=== PATIENT | female | born 1970 | race Two or more races ===

== ENCOUNTER 2019-10-27 01:30 | Inpatient (IN) | payer MEDICAID ==
[~2019-10-27] VITALS: Ht 154.9 cm; Wt 88.8 kg
[~2019-10-27 01:30] MED LIST: FERR325T18 PO; INSU100V8 SQ; SIMV20TA19 PO; Will bring list DOS
[2019-10-27] MEDS ORDERED: NALOXONE 0.4 MG/ML, 1ML ONE (01:39)
[2019-10-27] MEDS ORDERED: PLEASE ENTER ALLERGIES MC SCH (02:00)
[2019-10-27] MEDS ORDERED: SODIUM CHLORIDE FLUSH 10ML SYR IVF ONE (02:00)
[2019-10-27] MEDS ORDERED: NALOXONE 0.4 MG/ML, 1ML IVPush ONE (02:00)
--- NOTE | 2019-10-27 02:00 | NUR ---
BIB WITH C/O CP SINCE 7 PM, DENIES CP AT THIS TIME [facility] GAVE PT FENT 100 AND PT DESATING AT THIS TIME NARCAN GIVEN
[2019-10-27 02:10] LABS: BASOPHILS # (AUTO) 0.05 x10^3/uL (0-0.1); BASOPHILS % (AUTO) 1 % (0-1); EOSINOPHILS # (AUTO) 0.29 x10^3/uL (0-0.4); EOSINOPHILS % (AUTO) 4 % (1-7); LYMPHOCYTES # (AUTO) 1.18 x10^3/uL (1-3.4); LYMPHOCYTES % (AUTO) 16 % (22-44); MD NO; MEAN CORPUSCULAR HEMOGLOBIN 33.8 pg (27.0-34.8); MEAN CORPUSCULAR HGB CONC 32.3 g/dL (32.4-35.8); MEAN CORPUSCULAR VOLUME 104.6 fL (80-100); MEAN PLATELET VOLUME 8.5 fL (7.4-10.4); MONOCYTES # (AUTO) 0.47 x10^3/uL (0.2-0.8); MONOCYTES % (AUTO) 6 % (2-9); NEUTROPHILS # (AUTO) 5.59 x10^3/uL (1.8-6.8); NEUTROPHILS % (AUTO) 74 % (42-75); PLATELET COUNT 280 x10^3/uL (130-400); RED BLOOD COUNT 3.21 x10^6/uL (3.82-5.3); RED CELL DISTRIBUTION WIDTH 17.6 % (9.6-15.2)
[2019-10-27 02:22] LABS: ALANINE AMINOTRANSFERASE 15 U/L (12-78); ALBUMIN 3.3 g/dL (3.4-5.0); ANION GAP 8 mmol/L (5-15); CALCIUM 9.2 mg/dL (8.5-10.1); CHLORIDE 104 mmol/L (98-107); CREATININE 7.03 mg/dL (0.55-1.02)
[2019-10-27 02:27] LABS: ALKALINE PHOSPHATASE 95 U/L (45-117); BILIRUBIN,TOTAL 0.3 mg/dL (0.2-1.0); T4 (THYROXINE) 8.2 mcg/dL (4.8-13.9); TROPONIN I 0.045 ng/mL (0.000-0.045)
[2019-10-27] MEDS ORDERED: CALCIUM CHLORIDE 10%, 10ML SYR ONE (03:30)
[2019-10-27] MEDS ORDERED: ALBUTEROL 0.5%, 20ML NPPB ONE (03:30)
[2019-10-27] MEDS ORDERED: DEXTROSE 50%, 50ML SYRINGE IVPush ONE (03:30)
[2019-10-27] MEDS ORDERED: SODIUM BICARB 8.4%, 50ML SYRINGE IVPush ONE (03:30)
[2019-10-27] MEDS ORDERED: INSULIN REGULAR 100 UNITS/ML, 3ML VIAL IVPush ONE ×2 (03:30→11:00)
[2019-10-27] MEDS ORDERED: CALCIUM CHLORIDE 10%, 10ML SYR IVPush ONE (03:30)
[2019-10-27] MEDS ORDERED: SODIUM BICARBONATE 1 MEQ/ML, 50ML VIAL ONE (03:30)
[2019-10-27] MEDS ORDERED: DEXTROSE 50%, 50ML SYRINGE ONE (03:31)
[2019-10-27] MEDS ORDERED: INSULIN LISPRO SINGLE DOSE, ER SQ-INSULIN ONE (03:32)
--- NOTE | 2019-10-27 03:58 | NUR ---
PT MEDICATED PER EMAR. 5 RIGHTS ADDRESSED. SECOND EKG DONE DUE TO PT NOW C/O CHEST PAIN. PT INTERMITTENTLY SLEEPING WHILE THIS RN ADMINISTERING MEDS.
--- NOTE | 2019-10-27 04:06 | NUR ---
REPORT TO LIZZETH MELENDEZ
[2019-10-27 04:51] VITALS: BP 169/75
[2019-10-27] MEDS ORDERED: BISACODYL 10 MG SUPP PR PRN (05:00)
[2019-10-27] MEDS ORDERED: hydrALAzine 20 MG/ML, 1ML IVPush PRN (05:00)
[2019-10-27] MEDS ORDERED: POLYETHYLENE GLYCOL 17 GM PACKET PO PRN (05:00)
[2019-10-27] MEDS: HEPARIN 5,000 UNITS/ML, 1ML SQ SCH ×3 (05:49→21:00)
[2019-10-27] MEDS: INSULIN LISPRO 100 UNITS/ML, PEN SQ-INSULIN SCH ×4 (07:00→21:00)
[2019-10-27 08:02] VITALS: BP 173/81
[2019-10-27 08:02] LABS: HCT (SEDRATE) 32.7 % (34.6-47.8)
[2019-10-27 08:12] LABS: TROPONIN I 0.077 ng/mL (0.000-0.045)
[2019-10-27 09:52] LABS: ANION GAP 10 mmol/L (5-15); CALCIUM 9.3 mg/dL (8.5-10.1); CHLORIDE 107 mmol/L (98-107); CREATININE 7.33 mg/dL (0.55-1.02)
[2019-10-27 09:56] LABS: TROPONIN I 0.088 ng/mL (0.000-0.045)
[2019-10-27] MEDS ORDERED: SODIUM POLYSTYRENE SULFONATE ORAL SUSP PO ONE (11:00)
[2019-10-27] MEDS ORDERED: DEXTROSE 50%, 50ML VIAL IVPush ONE (11:00)
[2019-10-27 11:24] LABS: INTERNATIONAL NORMALIZED RATIO 0.94 (0.93-1.1)
[2019-10-27] MEDS: MULTIVITAMIN 1 TABLET PO SCH (11:30)
[2019-10-27 12:40] VITALS: BP 139/75
[2019-10-27] MEDS ORDERED: AMLO-150 PO (12:59)
[2019-10-27] MEDS ORDERED: LINA5TAB PO (12:59)
[2019-10-27] MEDS ORDERED: ASPI81TA45 PO (12:59)
[2019-10-27] MEDS ORDERED: SEVE800T8 PO (12:59)
[2019-10-27] MEDS ORDERED: ATOR-2 PO (12:59)
[2019-10-27] MEDS ORDERED: SENN1TAB68 PO (12:59)
[2019-10-27] MEDS ORDERED: ISOS60TA36 PO (12:59)
[2019-10-27] MEDS ORDERED: CLOP75TA PO (12:59)
[2019-10-27] MEDS ORDERED: TRAZ50TA66 PO (12:59)
[2019-10-27] MEDS ORDERED: GABA300C10 PO (12:59)
[2019-10-27 15:40] LABS: ANION GAP 11 mmol/L (5-15); CALCIUM 9.1 mg/dL (8.5-10.1); CHLORIDE 106 mmol/L (98-107); CREATININE 7.62 mg/dL (0.55-1.02)
[2019-10-27 20:50] VITALS: BP 136/59
[2019-10-27] MEDS: ATORVASTATIN 80 MG TABLET PO SCH (21:00)
[2019-10-28 03:41] VITALS: BP 132/77
[2019-10-28 06:02] LABS: ANION GAP 8 mmol/L (5-15); CALCIUM 8.9 mg/dL (8.5-10.1); CHLORIDE 101 mmol/L (98-107)
[2019-10-28 06:05] LABS: % IRON SATURATION 23 % (20-55); ALANINE AMINOTRANSFERASE 11 U/L (12-78); ALKALINE PHOSPHATASE 88 U/L (45-117); BILIRUBIN,TOTAL 0.7 mg/dL (0.2-1.0); CREATININE 4.53 mg/dL (0.55-1.02); IRON LEVEL 56 mcg/dL (50-170); TOTAL IRON BINDING CAPACITY 245 mcg/dL (250-450); TOTAL PROTEIN 7.6 g/dL (6.4-8.2)
[2019-10-28 06:08] LABS: MEAN CORPUSCULAR HEMOGLOBIN 33.8 pg (27.0-34.8); MEAN CORPUSCULAR HGB CONC 32.4 g/dL (32.4-35.8); MEAN CORPUSCULAR VOLUME 104.4 fL (80-100); MEAN PLATELET VOLUME 8.6 fL (7.4-10.4); PLATELET COUNT 293 x10^3/uL (130-400); RED BLOOD COUNT 3.12 x10^6/uL (3.82-5.3)
[2019-10-28 06:25] LABS: BASOPHILS # (AUTO) 0.05 x10^3/uL (0-0.1); BASOPHILS % (AUTO) 1 % (0-1); EOSINOPHILS # (AUTO) 0.24 x10^3/uL (0-0.4); EOSINOPHILS % (AUTO) 4 % (1-7); LYMPHOCYTES # (AUTO) 1.49 x10^3/uL (1-3.4); LYMPHOCYTES % (AUTO) 23 % (22-44); MD MORPH REVIEW ONLY; MONOCYTES # (AUTO) 0.43 x10^3/uL (0.2-0.8); MONOCYTES % (AUTO) 7 % (2-9); NEUTROPHILS # (AUTO) 4.33 x10^3/uL (1.8-6.8); NEUTROPHILS % (AUTO) 66 % (42-75)
[2019-10-28 06:26] LABS: ANISOCYTOSIS 1+; RED CELL DISTRIBUTION WIDTH 17.7 % (9.6-15.2)
[2019-10-28 06:27] LABS: <PLATELET ESTIMATE> ADEQUATE; <PLT MORPHOLOGY> NORMAL PLT MORPH; POLYCHROMASIA 1+
[2019-10-28] MEDS: HEPARIN 5,000 UNITS/ML, 1ML SQ SCH ×3 (06:38→20:46)
[2019-10-28] MEDS: INSULIN LISPRO 100 UNITS/ML, PEN SQ-INSULIN SCH ×4 (07:00→22:04)
[2019-10-28 07:50] VITALS: BP 156/82
[2019-10-28 08:38] LABS: TROPONIN I 0.123 ng/mL (0.000-0.045)
[2019-10-28] MEDS: MULTIVITAMIN 1 TABLET PO SCH (08:51)
[2019-10-28] MEDS: CLOPIDOGREL 75 MG TABLET PO SCH (08:51)
[2019-10-28] MEDS: ASPIRIN 81 MG TABLET EC PO SCH (08:51)
[2019-10-28] MEDS: ISOSORBIDE MONONITRATE ER 60 MG TABLET PO SCH (08:51)
[2019-10-28 13:54] VITALS: BP 135/73
[2019-10-28] MEDS: GABAPENTIN 300 MG CAPSULE PO PRN ×2 (14:01→20:46)
[2019-10-28] MEDS: ACETAMINOPHEN 325 MG TABLET PO PRN ×2 (14:01→20:46)
[2019-10-28 16:19] LABS: TROPONIN I 0.132 ng/mL (0.000-0.045)
[2019-10-28] MEDS: OXYcodone/APAP 5/325MG TABLET PO PRN (16:22)
[2019-10-28 18:44] VITALS: BP 125/81
[2019-10-28] MEDS: ATORVASTATIN 80 MG TABLET PO SCH (20:46)
[2019-10-28] MEDS ORDERED: OXYcodone/APAP 5/325MG TABLET PO ONE (21:00)
[2019-10-28] MEDS: TRAZODONE 50MG TABLET PO PRN (22:03)
[2019-10-29 00:52] VITALS: BP 114/71
[2019-10-29] MEDS: HEPARIN 5,000 UNITS/ML, 1ML SQ SCH ×3 (04:41→22:42)
[2019-10-29 05:36] LABS: BASOPHILS # (AUTO) 0.04 x10^3/uL (0-0.1); BASOPHILS % (AUTO) 1 % (0-1); EOSINOPHILS # (AUTO) 0.29 x10^3/uL (0-0.4); EOSINOPHILS % (AUTO) 5 % (1-7); LYMPHOCYTES # (AUTO) 1.72 x10^3/uL (1-3.4); LYMPHOCYTES % (AUTO) 29 % (22-44); MD NO; MEAN CORPUSCULAR HEMOGLOBIN 33.5 pg (27.0-34.8); MEAN CORPUSCULAR HGB CONC 32.3 g/dL (32.4-35.8); MEAN CORPUSCULAR VOLUME 103.8 fL (80-100); MEAN PLATELET VOLUME 8.3 fL (7.4-10.4); MONOCYTES # (AUTO) 0.53 x10^3/uL (0.2-0.8); MONOCYTES % (AUTO) 9 % (2-9); NEUTROPHILS # (AUTO) 3.34 x10^3/uL (1.8-6.8); NEUTROPHILS % (AUTO) 56 % (42-75); PLATELET COUNT 277 x10^3/uL (130-400); RED BLOOD COUNT 3.46 x10^6/uL (3.82-5.3); RED CELL DISTRIBUTION WIDTH 17.5 % (9.6-15.2)
[2019-10-29 05:49] LABS: ALANINE AMINOTRANSFERASE 14 U/L (12-78); ALBUMIN 3.2 g/dL (3.4-5.0); ANION GAP 7 mmol/L (5-15); CALCIUM 9.4 mg/dL (8.5-10.1); CHLORIDE 99 mmol/L (98-107)
[2019-10-29 05:51] LABS: ALKALINE PHOSPHATASE 95 U/L (45-117); BILIRUBIN,TOTAL 0.6 mg/dL (0.2-1.0); CREATININE 3.62 mg/dL (0.55-1.02); TOTAL PROTEIN 7.8 g/dL (6.4-8.2)
[2019-10-29 08:23] LABS: TROPONIN I 0.092 ng/mL (0.000-0.045)
[2019-10-29 08:34] VITALS: BP 138/82
[2019-10-29] MEDS: INSULIN LISPRO 100 UNITS/ML, PEN SQ-INSULIN SCH ×4 (09:34→20:13)
[2019-10-29] MEDS ORDERED: REGADENOSON 0.4 MG/5 ML SYRINGE ONE (09:47)
[2019-10-29] MEDS: MULTIVITAMIN 1 TABLET PO SCH (09:53)
[2019-10-29] MEDS: ASPIRIN 81 MG TABLET EC PO SCH (09:53)
[2019-10-29] MEDS: CLOPIDOGREL 75 MG TABLET PO SCH (09:53)
[2019-10-29] MEDS: ISOSORBIDE MONONITRATE ER 60 MG TABLET PO SCH (09:53)
[2019-10-29] MEDS: LISINOPRIL 5 MG TABLET PO SCH (09:53)
[2019-10-29 14:02] VITALS: BP 139/59
[2019-10-29 20:04] VITALS: BP 101/62
[2019-10-29] MEDS: ATORVASTATIN 80 MG TABLET PO SCH (20:08)
[2019-10-29] MEDS: OXYcodone/APAP 5/325MG TABLET PO PRN (20:08)
[2019-10-29] MEDS ORDERED: INSULIN LISPRO 100 UNIT/ML, 3ML VIAL IVPush ONE (21:30)
[2019-10-29] MEDS: TRAZODONE 50MG TABLET PO PRN (22:42)
[2019-10-30 01:16] VITALS: BP 121/73
[2019-10-30] MEDS: HEPARIN 5,000 UNITS/ML, 1ML SQ SCH ×3 (06:21→21:35)
[2019-10-30] MEDS: INSULIN LISPRO 100 UNITS/ML, PEN SQ-INSULIN SCH ×4 (07:49→21:00)
[2019-10-30 08:41] VITALS: BP 132/76
[2019-10-30] MEDS: LISINOPRIL 5 MG TABLET PO SCH (08:53)
[2019-10-30] MEDS: MULTIVITAMIN 1 TABLET PO SCH (08:54)
[2019-10-30] MEDS: ASPIRIN 81 MG TABLET EC PO SCH (08:55)
[2019-10-30] MEDS: CLOPIDOGREL 75 MG TABLET PO SCH (08:56)
[2019-10-30] MEDS: ISOSORBIDE MONONITRATE ER 60 MG TABLET PO SCH (08:56)
[2019-10-30] MEDS: CARVEDILOL 6.25 MG TABLET PO SCH ×2 (10:44→20:00)
[2019-10-30] MEDS: OXYcodone/APAP 5/325MG TABLET PO PRN ×2 (11:54→18:15)
[2019-10-30] MEDS: D5%-0.9% NACL 1,000 ML IV SCH ×2 (11:55→21:39)
[2019-10-30 12:09] VITALS: BP 123/75
[2019-10-30] MEDS ORDERED: MIDAZOLAM 1 MG/ML, 5ML ONE (16:06)
[2019-10-30] MEDS ORDERED: TICAGRELOR 90 MG TABLET ONE (16:06)
[2019-10-30] MEDS ORDERED: FENTANYL PF 100 MCG/2ML ONE (16:06)
[2019-10-30] MEDS ORDERED: BIVALIRUDIN 250 MG ONE (16:07)
[2019-10-30] MEDS ORDERED: VERAPAMIL 2.5 MG/ML, 2ML ONE (16:07)
[2019-10-30] MEDS ORDERED: HEPARIN 1,000 UNITS/ML, 10ML ONE (16:07)
[2019-10-30] MEDS ORDERED: LIDOCAINE-MPF 1%, 5ML ONE (16:07)
[2019-10-30] MEDS ORDERED: GABAPENTIN 300 MG CAPSULE ONE (19:49)
[2019-10-30] MEDS: ACETAMINOPHEN 325 MG TABLET PO PRN (19:51)
[2019-10-30 20:08] VITALS: BP 138/76
[2019-10-30] MEDS ORDERED: GABAPENTIN 300 MG CAPSULE PO SCH (21:00)
[2019-10-30] MEDS: ATORVASTATIN 80 MG TABLET PO SCH (21:35)
[2019-10-31] MEDS ORDERED: SODIUM CHLORIDE 0.9% 500 ML IV ONE
[2019-10-31 01:26] VITALS: BP 121/74
[2019-10-31] MEDS: OXYcodone/APAP 5/325MG TABLET PO PRN ×3 (01:56→20:49)
[2019-10-31 05:02] LABS: BASOPHILS # (AUTO) 0.07 x10^3/uL (0-0.1); BASOPHILS % (AUTO) 1 % (0-1); EOSINOPHILS # (AUTO) 0.25 x10^3/uL (0-0.4); EOSINOPHILS % (AUTO) 4 % (1-7); LYMPHOCYTES # (AUTO) 1.63 x10^3/uL (1-3.4); LYMPHOCYTES % (AUTO) 23 % (22-44); MD NO; MEAN CORPUSCULAR HEMOGLOBIN 34.1 pg (27.0-34.8); MEAN CORPUSCULAR HGB CONC 32.7 g/dL (32.4-35.8); MEAN CORPUSCULAR VOLUME 104.4 fL (80-100); MEAN PLATELET VOLUME 8.1 fL (7.4-10.4); MONOCYTES # (AUTO) 0.85 x10^3/uL (0.2-0.8); MONOCYTES % (AUTO) 12 % (2-9); NEUTROPHILS # (AUTO) 4.17 x10^3/uL (1.8-6.8); NEUTROPHILS % (AUTO) 60 % (42-75); PLATELET COUNT 267 x10^3/uL (130-400); RED BLOOD COUNT 3.52 x10^6/uL (3.82-5.3)
[2019-10-31 05:16] LABS: ALBUMIN 3.1 g/dL (3.4-5.0); ANION GAP 10 mmol/L (5-15); CALCIUM 8.8 mg/dL (8.5-10.1); CHLORIDE 100 mmol/L (98-107)
[2019-10-31 05:19] LABS: ALANINE AMINOTRANSFERASE 16 U/L (12-78); ALKALINE PHOSPHATASE 89 U/L (45-117); BILIRUBIN,TOTAL 0.6 mg/dL (0.2-1.0); CREATININE 4.82 mg/dL (0.55-1.02); TOTAL PROTEIN 7.7 g/dL (6.4-8.2)
[2019-10-31] MEDS: CARVEDILOL 6.25 MG TABLET PO SCH ×2 (06:00→20:49)
[2019-10-31] MEDS: INSULIN LISPRO 100 UNITS/ML, PEN SQ-INSULIN SCH ×4 (07:00→22:24)
[2019-10-31 08:03] VITALS: BP 126/52
[2019-10-31] MEDS: D5%-0.9% NACL 1,000 ML IV SCH (11:43)
[2019-10-31] MEDS: LOSARTAN 25MG TABLET PO SCH (12:47)
[2019-10-31] MEDS: ISOSORBIDE MONONITRATE ER 60 MG TABLET PO SCH (12:50)
[2019-10-31] MEDS: ASPIRIN 81 MG TABLET EC PO SCH (12:50)
[2019-10-31] MEDS: CLOPIDOGREL 75 MG TABLET PO SCH (12:51)
[2019-10-31] MEDS: MULTIVITAMIN 1 TABLET PO SCH (13:01)
[2019-10-31] MEDS ORDERED: HYDROmorphone 2 MG/ML, 1ML IV ONE (14:30)
[2019-10-31] MEDS ORDERED: ONDANSETRON 2MG/ML, 2ML IVPush PRN (16:00)
[2019-10-31 16:35] VITALS: BP 93/45
[2019-10-31 17:26] VITALS: BP 95/45
[2019-10-31 19:45] VITALS: BP 136/70
[2019-10-31] MEDS: ATORVASTATIN 80 MG TABLET PO SCH (20:49)
[2019-10-31] MEDS ORDERED: GABAPENTIN 300 MG CAPSULE PO SCH (21:00)
[2019-11-01 00:55] VITALS: BP 109/67
[2019-11-01] MEDS ORDERED: LIDODERM 5% PATCH TD ONE (00:57)
[2019-11-01] MEDS ORDERED: LIDODERM 5% PATCH TD SCH (01:00)
[2019-11-01 05:08] LABS: BASOPHILS # (AUTO) 0.06 x10^3/uL (0-0.1); BASOPHILS % (AUTO) 1 % (0-1); EOSINOPHILS # (AUTO) 0.21 x10^3/uL (0-0.4); EOSINOPHILS % (AUTO) 3 % (1-7); LYMPHOCYTES # (AUTO) 1.69 x10^3/uL (1-3.4); LYMPHOCYTES % (AUTO) 25 % (22-44); MD NO; MEAN CORPUSCULAR HEMOGLOBIN 33.4 pg (27.0-34.8); MEAN CORPUSCULAR HGB CONC 32.1 g/dL (32.4-35.8); MEAN CORPUSCULAR VOLUME 104.1 fL (80-100); MEAN PLATELET VOLUME 8.3 fL (7.4-10.4); MONOCYTES # (AUTO) 0.84 x10^3/uL (0.2-0.8); MONOCYTES % (AUTO) 12 % (2-9); NEUTROPHILS # (AUTO) 3.95 x10^3/uL (1.8-6.8); NEUTROPHILS % (AUTO) 59 % (42-75); PLATELET COUNT 266 x10^3/uL (130-400); RED BLOOD COUNT 3.65 x10^6/uL (3.82-5.3); RED CELL DISTRIBUTION WIDTH 17.1 % (9.6-15.2)
[2019-11-01 05:20] LABS: ALBUMIN 3.3 g/dL (3.4-5.0); ANION GAP 9 mmol/L (5-15); CHLORIDE 97 mmol/L (98-107); CREATININE 4.07 mg/dL (0.55-1.02)
[2019-11-01 05:57] VITALS: BP 110/66
[2019-11-01] MEDS: CARVEDILOL 6.25 MG TABLET PO SCH (06:00)
[2019-11-01] MEDS: INSULIN LISPRO 100 UNITS/ML, PEN SQ-INSULIN SCH ×2 (07:00→11:00)
[2019-11-01 08:13] VITALS: BP 75/34
[2019-11-01 08:31] VITALS: BP_SYST 82; BP_SYST 90; BP_DIAS 56; BP_DIAS 61
[2019-11-01] MEDS: LOSARTAN 25MG TABLET PO SCH (09:00)
[2019-11-01] MEDS: ISOSORBIDE MONONITRATE ER 60 MG TABLET PO SCH (09:00)
[2019-11-01] MEDS ORDERED: GABA300C10 PO (09:30)
[2019-11-01] MEDS ORDERED: CARV3.12 PEG ×2 (09:41)
[2019-11-01] MEDS ORDERED: LOSA25TA25 PO (09:41)
[2019-11-01] MEDS ORDERED: CARV3.12 PO (09:45)
[2019-11-01] MEDS: MULTIVITAMIN 1 TABLET PO SCH (10:00)
[2019-11-01] MEDS: ASPIRIN 81 MG TABLET EC PO SCH (10:00)
[2019-11-01] MEDS: CLOPIDOGREL 75 MG TABLET PO SCH (10:00)
[2019-11-01] MEDS: ACETAMINOPHEN 325 MG TABLET PO PRN (10:01)
[2019-11-01] MEDS ORDERED: LIDODERM REMOVE PATCH NOTE XX SCH (13:00)
== END 2019-11-01 11:38 | disposition home or self-care (01) | DRG 246 ==
LOC: EDBD → MERGE 01:30 → ED 02:20 → EDIP 03:44 → 5SO 04:35 → 4WST 10-29 00:40 → 5SO 10-30 17:56 → DCLOUNGE 11-01 11:22
PROVIDERS: ADMIT Hospitalist; ATTEND Family Medicine
PROC: 027034Z Dilation of Coronary Artery, One Artery with Drug-eluting Intraluminal Device, Percutaneous Approach (ICD-10-PCS; principal; 2019-10-27)
PROC: 4A023N7 Measurement of Cardiac Sampling and Pressure, Left Heart, Percutaneous Approach (ICD-10-PCS; 2019-10-27)
PROC: B211YZZ Fluoroscopy of Multiple Coronary Arteries using Other Contrast (ICD-10-PCS; 2019-10-27)
PROC: B215YZZ Fluoroscopy of Left Heart using Other Contrast (ICD-10-PCS; 2019-10-27)
PROC: 5A1D70Z Performance of Urinary Filtration, Intermittent, Less than 6 Hours Per Day (ICD-10-PCS; 2019-10-27)
PROC: 5A1D70Z Performance of Urinary Filtration, Intermittent, Less than 6 Hours Per Day (ICD-10-PCS; 2019-10-28)
PROC: 5A1D70Z Performance of Urinary Filtration, Intermittent, Less than 6 Hours Per Day (ICD-10-PCS; 2019-10-29)
PROC: 5A1D70Z Performance of Urinary Filtration, Intermittent, Less than 6 Hours Per Day (ICD-10-PCS; 2019-10-31)
DX: I25.10 Atherosclerotic heart disease of native coronary artery without angina pectoris (principal); I50.43 Acute on chronic combined systolic (congestive) and diastolic (congestive) heart failure; N18.6 End stage renal disease; I13.2 Hypertensive heart and chronic kidney disease with heart failure and with stage 5 chronic kidney disease, or end stage renal disease; D53.9 Nutritional anemia, unspecified; D63.1 Anemia in chronic kidney disease; E11.22 Type 2 diabetes mellitus with diabetic chronic kidney disease; E11.51 Type 2 diabetes mellitus with diabetic peripheral angiopathy without gangrene; E66.01 Morbid (severe) obesity due to excess calories; Z68.37 Body mass index [BMI] 37.0-37.9, adult; M54.9 Dorsalgia, unspecified; I95.9 Hypotension, unspecified; E78.5 Hyperlipidemia, unspecified; E87.5 Hyperkalemia; I25.5 Ischemic cardiomyopathy; N25.0 Renal osteodystrophy; Z83.3 Family history of diabetes mellitus; Z87.891 Personal history of nicotine dependence; Z89.511 Acquired absence of right leg below knee; Z91.19 Patient's noncompliance with other medical treatment and regimen; Z99.2 Dependence on renal dialysis; Z88.7 Allergy status to serum and vaccine; Z79.84 Long term (current) use of oral hypoglycemic drugs
CPT/HCPCS: 36415; 93017; 93458; 96374; 96375; 99285; C9600; J7042; 71045; 76770; 78452; 80048; 80053; 80069; 82306; 82728; 82962; 83540; 83550; 83735; 83880; 83970; 84100; 84436; 84439; 84443; 84484; 84550; 85025; 85610; 85651; 85730; 86705; 86706; 87340; 90935; 93005; 93306; 99156; 99157; C1769; C1894; G0378; J0583; J1170; J1644; J1815; J2250; J2310; J2405; J2785; J3010; A9502; C1725; C1874; C1887; J7040; Q9967